=== PATIENT | male | born 1985 | race Caucasian/White ===

== ENCOUNTER 2016-12-05 13:08 | Inpatient (IN) | payer OTHER ==
[2016-12-05 15:49] VITALS: BMI 26.3
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
[2016-12-05] MEDS ORDERED: hydrOXYzine PAMOATE 50 MG CAPSULE (FP) PO PRN (17:09)
[2016-12-05] MEDS ORDERED: MAGNESIUM CITRATE 300 ML BOTTLE PO PRN (17:09)
[2016-12-05] MEDS ORDERED: guaiFENesin/D-METHORPHAN HB 10 ML UNIT-DOSE CUPS PO PRN (17:09)
[2016-12-05] MEDS ORDERED: LOPERAMIDE HCL 2 MG CAPSULE PO PRN (17:09)
[2016-12-05] MEDS ORDERED: ACETAMINOPHEN 325 MG TABLET (FP) PO PRN (17:09)
[2016-12-05] MEDS ORDERED: P-EPHED 60MG/TRIPROLIDI 2.5MG TABLET PO PRN (17:09)
[2016-12-05] MEDS ORDERED: MAG HYDROX/AL HYDROX/SIMETH 30 ML UNIT-DOSE CUP PO PRN (17:09)
[2016-12-05] MEDS ORDERED: MAGNESIUM HYDROX 2400MG/30ML ORAL SUSPENSION 30 ML CUP PO PRN (17:09)
[2016-12-05] MEDS ORDERED: MENTHOL/PHENOL 1 EACH UD MM PRN (17:09)
[2016-12-05] MEDS ORDERED: ALBUTEROL SO4 6.7 GM HFA INHALER IH PRN (17:15)
[2016-12-05] MEDS ORDERED: METHADONE HCL 10 MG TABLET (FOR DETOX USE ONLY) PO ONE ×2 (18:45→23:00)
[2016-12-05] MEDS: diazePAM 5 MG TABLET PO PRN (18:59)
[2016-12-05 22:32] LABS: URINE APPEARANCE CLEAR; URINE BILIRUBIN NEGATIVE (NEGATIVE); URINE COLOR YELLOW; URINE GLUCOSE (UA) NEGATIVE (NEGATIVE); URINE KETONE NEGATIVE (NEGATIVE); URINE LEUK ESTERASE NEGATIVE (NEGATIVE); URINE NITRITE NEGATIVE (NEGATIVE); URINE PROTEIN NEGATIVE (NEGATIVE); URINE UROBILINOGEN NEGATIVE E.U./dl (0.2-1.0)
[2016-12-05 22:34] LABS: URINE BLOOD 1+ (NEGATIVE)
[2016-12-05] MEDS: VARENICLINE TARTRATE 1 MG TAB PO SCH (22:37)
[2016-12-05] MEDS: CYCLOBENZAPRINE HCL 10 MG TABLET (FP) PO PRN (22:37)
[2016-12-05] MEDS: cloNIDine HCL 0.1 MG TABLET PO SCH (22:37)
[2016-12-05] MEDS: THIAMINE HCL 100 MG TABLET (FP) PO SCH (22:38)
[2016-12-05 22:44] LABS: URINE MUCUS RARE; URINE RBC 16 /hpf (0-3); URINE WBC 1 /hpf (3-5)
[2016-12-06] MEDS: diazePAM 5 MG TABLET PO PRN ×4 (06:21→22:13)
[2016-12-06] MEDS: CYCLOBENZAPRINE HCL 10 MG TABLET (FP) PO PRN ×3 (06:21→22:13)
[2016-12-06 09:55] LABS: MCH 29.5 pg (25.7-33.7); MEAN CELL VOLUME 86.9 fl (80-96); MEAN PLT VOLUME 8.7 fl (7.5-11.1); PLATELET COUNT 226 K/MM3 (134-434); WHITE BLOOD COUNT 6.3 K/mm3 (4.0-10.0)
[2016-12-06] MEDS ORDERED: METHADONE HCL 10 MG TABLET (FOR DETOX USE ONLY) PO ONE (10:00)
[2016-12-06] MEDS: cloNIDine HCL 0.1 MG TABLET PO SCH ×2 (10:36→22:13)
[2016-12-06] MEDS: PRENATAL VITAMINS W/ FOLIC ACID TABLET (FP) PO SCH (10:36)
[2016-12-06] MEDS: VARENICLINE TARTRATE 1 MG TAB PO SCH ×2 (10:36→22:13)
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
[2016-12-06 10:43] LABS: ALBUMIN 2.8 g/dl (3.4-5.0); ALK PHOS 82 U/L (45-117); ANION GAP 8 (8-16); BILIRUBIN,TOTAL 0.5 mg/dL (0.2-1.0); CALCIUM 8.6 mg/dL (8.5-10.1); CO2 29 mmol/L (21-32); COCKROFT - GAULT 161.78; CREATININE 0.7 mg/dL (0.7-1.3); GLUCOSE,RANDOM 109 mg/dL (74-106); SGOT/AST 30 U/L (15-37); SGPT/ALT 46 U/L (12-78); TOT PROT 5.8 g/dl (6.4-8.2)
--- NOTE | 2016-12-06 10:51 | PN ---
S COWS - Scale Resting Pulse: 0= [place] 80 or Below Sweatin= Chills/Flushing Restless Observation: 3= Extraneous Movement Pupil Size: 2= Moderately Dilated Bone or Joint Aches: 4=Acute Joint/Muscle Pain Runny Nose/ Eye Tearin= Nasal Congestion GI Upset > 30mins: 1= Stomach Cramp Tremor Observation of Outstretched Hands: 1= Tremor [place], Not Seen Yawning Observation: 1= 1-2x During Session Anxiety or Irritability: 2=Irritable/Anxious Goose Flesh Skin: 0=Smooth Skin COWS Score: 16 S Progress Note (SOAP) Subjective: ANXIETY,SWEATS,FATIGUE. Objective: 12/06/16 10:50 Vital Signs Temperature 96.6 F L 12/06/16 06:37 Pulse Rate 70 12/06/16 09:46 Respiratory Rate 20 12/06/16 09:46 Blood Pressure 123/73 12/06/16 09:46 O2 Sat by Pulse Oximetry (%) Laboratory Last Values WBC 6.3 K/mm3 (4.0-10.0) 12/06/16 07:00 RBC 4.69 M/mm3 (4.00-5.60) 12/06/16 07:00 Hgb 13.9 GM/dL (11.7-16.9) 12/06/16 07:00 Hct 40.8 % (35.4-49) 12/06/16 07:00 MCV 86.9 fl (80-96) 12/06/16 07:00 MCHC 34.0 g/dl (32.0-35.9) 12/06/16 07:00 RDW 13.0 % (11.9-15.9) D 12/06/16 07:00 Plt Count 226 K/MM3 (134-434) 12/06/16 07:00 MPV 8.7 fl (7.5-11.1) 12/06/16 07:00 Urine Color Yellow 12/05/16 20:30 Urine Appearance Clear 12/05/16 20:30 Urine pH 5.0 (5.0-8.0) 12/05/16 20:30 Ur Specific [place] >= 1.030 (1.005-1.025) H 12/05/16 20:30 Urine Protein Negative (NEGATIVE) 12/05/16 20:30 Urine Glucose (UA) Negative (NEGATIVE) 12/05/16 20:30 Urine Ketones Negative (NEGATIVE) 12/05/16 20:30 Urine Blood 1+ (NEGATIVE) H 12/05/16 20:30 Urine Nitrite Negative (NEGATIVE) 12/05/16 20:30 Urine Bilirubin Negative (NEGATIVE) 12/05/16 20:30 Urine Urobilinogen Negative E.U./dl (0.2-1.0) 12/05/16 20:30 Ur Leukocyte Esterase Negative (NEGATIVE) 12/05/16 20:30 Urine RBC 16 /hpf (0-3) 12/05/16 20:30 Urine WBC 1 /hpf (3-5) 12/05/16 20:30 Ur Epithelial Cells Rare /hpf (FEW) 12/05/16 20:30 Urine Mucus Rare 12/05/16 20:30 Assessment: 12/06/16 10:50 WITHDRAWAL SX Plan: CONTINUE DETOX
[2016-12-06 12:34] LABS: HIV 1 & 2 AB NEGATIVE; HIV 1 AGp24 NEGATIVE
--- NOTE | 2016-12-06 12:49 | EKG ---
Test Reason : Blood Pressure : / mmHG Vent. Rate : 077 BPM Atrial Rate : 077 BPM P-R Int : 168 ms QRS Dur : 090 ms QT Int : 380 ms P-R-T Axes : 072 066 058 degrees QTc Int : 430 ms NORMAL SINUS RHYTHM NORMAL ECG NO PREVIOUS ECGS AVAILABLE Confirmed by SCOUT BAR, OMARI ([id number]) on 12/06/2016 12:49:08 PM Referred By: Confirmed By:OMARI BUTTERFIELD MD
[2016-12-06] MEDS: diphenhydrAMINE HCL 50 MG CAPSULE PO PRN (22:13)
[2016-12-06] MEDS: THIAMINE HCL 100 MG TABLET (FP) PO SCH (22:13)
[2016-12-07] MEDS: diazePAM 5 MG TABLET PO PRN ×3 (06:06→22:16)
[2016-12-07] MEDS: CYCLOBENZAPRINE HCL 10 MG TABLET (FP) PO PRN (06:06)
[2016-12-07] MEDS ORDERED: METHADONE HCL 5 MG TABLET (FOR DETOX USE ONLY) PO ONE (10:00)
[2016-12-07] MEDS: cloNIDine HCL 0.1 MG TABLET PO SCH ×2 (10:46→22:16)
[2016-12-07] MEDS: VARENICLINE TARTRATE 1 MG TAB PO SCH ×2 (10:46→22:16)
[2016-12-07] MEDS: SERTRALINE HCL 50 MG TABLET (FP) PO SCH (10:46)
[2016-12-07] MEDS: PRENATAL VITAMINS W/ FOLIC ACID TABLET (FP) PO SCH (10:46)
--- NOTE | 2016-12-07 12:00 | PN ---
BHS COWS - Scale Resting Pulse: 1= [place] 81-100 Sweatin= Chills/Flushing Restless Observation: 3= Extraneous Movement Pupil Size: 2= Moderately Dilated Bone or Joint Aches: 4=Acute Joint/Muscle Pain Runny Nose/ Eye Tearin= Nasal Congestion GI Upset > 30mins: 1= Stomach Cramp Tremor Observation of Outstretched Hands: 2= Slight Tremor Visible Yawning Observation: 2= >3x During Session Anxiety or Irritability: 2=Irritable/Anxious Goose Flesh Skin: 0=Smooth Skin COWS Score: 19 BHS Progress Note (SOAP) Subjective: ANXIETY,IRRITABILITY,SWEATS,MUSCLE/BODY ACHES,FATIGUE. Objective: 12/07/16 11:59 Vital Signs Temperature 98.1 F 12/07/16 09:30 Pulse Rate 88 12/07/16 09:30 Respiratory Rate 18 12/07/16 09:30 Blood Pressure 129/83 12/07/16 09:30 O2 Sat by Pulse Oximetry (%) Laboratory Last Values WBC 6.3 K/mm3 (4.0-10.0) 12/06/16 07:00 RBC 4.69 M/mm3 (4.00-5.60) 12/06/16 07:00 Hgb 13.9 GM/dL (11.7-16.9) 12/06/16 07:00 Hct 40.8 % (35.4-49) 12/06/16 07:00 MCV 86.9 fl (80-96) 12/06/16 07:00 MCHC 34.0 g/dl (32.0-35.9) 12/06/16 07:00 RDW 13.0 % (11.9-15.9) D 12/06/16 07:00 Plt Count 226 K/MM3 (134-434) 12/06/16 07:00 MPV 8.7 fl (7.5-11.1) 12/06/16 07:00 Sodium 140 mmol/L (136-145) 12/06/16 07:00 Potassium 4.2 mmol/L (3.5-5.1) 12/06/16 07:00 Chloride 103 mmol/L (98-107) 12/06/16 07:00 Carbon Dioxide 29 mmol/L (21-32) 12/06/16 07:00 Anion Gap 8 (8-16) 12/06/16 07:00 BUN 16 mg/dL (7-18) 12/06/16 07:00 Creatinine 0.7 mg/dL (0.7-1.3) D 12/06/16 07:00 Creat Clearance w eGFR > 60 (>60) 12/06/16 07:00 Random Glucose 109 mg/dL (74-106) H D 12/06/16 07:00 Calcium 8.6 mg/dL (8.5-10.1) 12/06/16 07:00 Total Bilirubin 0.5 mg/dL (0.2-1.0) D 12/06/16 07:00 AST 30 U/L (15-37) 12/06/16 07:00 ALT 46 U/L (12-78) 12/06/16 07:00 Alkaline Phosphatase 82 U/L (45-117) 12/06/16 07:00 Total Protein 5.8 g/dl (6.4-8.2) L 12/06/16 07:00 Albumin 2.8 g/dl (3.4-5.0) L 12/06/16 07:00 Urine Color Yellow 12/05/16 20:30 Urine Appearance Clear 12/05/16 20:30 Urine pH 5.0 (5.0-8.0) 12/05/16 20:30 Ur Specific [place] >= 1.030 (1.005-1.025) H 12/05/16 20:30 Urine Protein Negative (NEGATIVE) 12/05/16 20:30 Urine Glucose (UA) Negative (NEGATIVE) 12/05/16 20:30 Urine Ketones Negative (NEGATIVE) 12/05/16 20:30 Urine Blood 1+ (NEGATIVE) H 12/05/16 20:30 Urine Nitrite Negative (NEGATIVE) 12/05/16 20:30 Urine Bilirubin Negative (NEGATIVE) 12/05/16 20:30 Urine Urobilinogen Negative E.U./dl (0.2-1.0) 12/05/16 20:30 Ur Leukocyte Esterase Negative (NEGATIVE) 12/05/16 20:30 Urine RBC 16 /hpf (0-3) 12/05/16 20:30 Urine WBC 1 /hpf (3-5) 12/05/16 20:30 Ur Epithelial Cells Rare /hpf (FEW) 12/05/16 20:30 Urine Mucus Rare 12/05/16 20:30 RPR Titer Nonreactive (NONREACTIVE) 12/06/16 07:00 HIV 1&2 Antibody Screen Negative 12/06/16 07:00 HIV P24 Antigen Negative 12/06/16 07:00 Assessment: 12/07/16 11:59 WITHDRAWAL SX Plan: CONTINUE DETOX FLEXERIL DIRECTED
[2016-12-07] MEDS: CYCLOBENZAPRINE HCL 10 MG TABLET (FP) PO SCH ×2 (16:05→22:16)
[2016-12-07] MEDS: THIAMINE HCL 100 MG TABLET (FP) PO SCH (22:16)
[2016-12-07] MEDS: diphenhydrAMINE HCL 50 MG CAPSULE PO PRN (22:16)
[2016-12-08] MEDS: CYCLOBENZAPRINE HCL 10 MG TABLET (FP) PO SCH ×2 (05:43→13:02)
[2016-12-08] MEDS ORDERED: METHADONE HCL 5 MG TABLET (FOR DETOX USE ONLY) PO ONE (10:00)
[2016-12-08] MEDS: PRENATAL VITAMINS W/ FOLIC ACID TABLET (FP) PO SCH (10:18)
[2016-12-08] MEDS: VARENICLINE TARTRATE 1 MG TAB PO SCH (10:18)
[2016-12-08] MEDS: cloNIDine HCL 0.1 MG TABLET PO SCH (10:18)
[2016-12-08] MEDS: SERTRALINE HCL 50 MG TABLET (FP) PO SCH (10:18)
[2016-12-08] MEDS: diazePAM 5 MG TABLET PO PRN ×2 (10:19→16:49)
--- NOTE | 2016-12-08 10:38 | PN ---
S Progress Note (SOAP) Subjective: IRRITABILITY,ANXIETY,RESTLESSNESS, SWEATS/CHILLS, MUSCLE ACHES. Objective: 12/08/16 10:37 Vital Signs Temperature 96.8 F L 12/08/16 09:53 Pulse Rate 93 H 12/08/16 09:53 Respiratory Rate 20 12/08/16 09:53 Blood Pressure 128/85 12/08/16 09:53 O2 Sat by Pulse Oximetry (%) Laboratory Last Values WBC 6.3 K/mm3 (4.0-10.0) 12/06/16 07:00 RBC 4.69 M/mm3 (4.00-5.60) 12/06/16 07:00 Hgb 13.9 GM/dL (11.7-16.9) 12/06/16 07:00 Hct 40.8 % (35.4-49) 12/06/16 07:00 MCV 86.9 fl (80-96) 12/06/16 07:00 MCHC 34.0 g/dl (32.0-35.9) 12/06/16 07:00 RDW 13.0 % (11.9-15.9) D 12/06/16 07:00 Plt Count 226 K/MM3 (134-434) 12/06/16 07:00 MPV 8.7 fl (7.5-11.1) 12/06/16 07:00 Sodium 140 mmol/L (136-145) 12/06/16 07:00 Potassium 4.2 mmol/L (3.5-5.1) 12/06/16 07:00 Chloride 103 mmol/L (98-107) 12/06/16 07:00 Carbon Dioxide 29 mmol/L (21-32) 12/06/16 07:00 Anion Gap 8 (8-16) 12/06/16 07:00 BUN 16 mg/dL (7-18) 12/06/16 07:00 Creatinine 0.7 mg/dL (0.7-1.3) D 12/06/16 07:00 Creat Clearance w eGFR > 60 (>60) 12/06/16 07:00 Random Glucose 109 mg/dL (74-106) H D 12/06/16 07:00 Calcium 8.6 mg/dL (8.5-10.1) 12/06/16 07:00 Total Bilirubin 0.5 mg/dL (0.2-1.0) D 12/06/16 07:00 AST 30 U/L (15-37) 12/06/16 07:00 ALT 46 U/L (12-78) 12/06/16 07:00 Alkaline Phosphatase 82 U/L (45-117) 12/06/16 07:00 Total Protein 5.8 g/dl (6.4-8.2) L 12/06/16 07:00 Albumin 2.8 g/dl (3.4-5.0) L 12/06/16 07:00 Urine Color Yellow 12/05/16 20:30 Urine Appearance Clear 12/05/16 20:30 Urine pH 5.0 (5.0-8.0) 12/05/16 20:30 Ur Specific [place] >= 1.030 (1.005-1.025) H 12/05/16 20:30 Urine Protein Negative (NEGATIVE) 12/05/16 20:30 Urine Glucose (UA) Negative (NEGATIVE) 12/05/16 20:30 Urine Ketones Negative (NEGATIVE) 12/05/16 20:30 Urine Blood 1+ (NEGATIVE) H 12/05/16 20:30 Urine Nitrite Negative (NEGATIVE) 12/05/16 20:30 Urine Bilirubin Negative (NEGATIVE) 12/05/16 20:30 Urine Urobilinogen Negative E.U./dl (0.2-1.0) 12/05/16 20:30 Ur Leukocyte Esterase Negative (NEGATIVE) 12/05/16 20:30 Urine RBC 16 /hpf (0-3) 12/05/16 20:30 Urine WBC 1 /hpf (3-5) 12/05/16 20:30 Ur Epithelial Cells Rare /hpf (FEW) 12/05/16 20:30 Urine Mucus Rare 12/05/16 20:30 RPR Titer Nonreactive (NONREACTIVE) 12/06/16 07:00 HIV 1&2 Antibody Screen Negative 12/06/16 07:00 HIV P24 Antigen Negative 12/06/16 07:00 Assessment: 12/08/16 10:38 WITHDRAWAL SX Plan: CONTINUE DETOX
[2016-12-08 17:45] VITALS: BP 91/66; PULSE 69; TEMP 97.8
--- NOTE | 2016-12-08 21:50 | DS ---
[facility] Detox Discharge Summary Admission Date: 12/05/16 Discharge Date: 12/08/16 - History Present History: Alcohol Dependence, Opioid Dependence Additional Comments: patient insists to leave the unit, refuses to wait face to face with provider refuses e prescription Pertinent Past History: asthma - Physical Exam Results Vital Signs: Vital Signs Temperature 97.8 F 12/08/16 17:45 Pulse Rate 69 12/08/16 17:45 Respiratory Rate 18 12/08/16 17:45 Blood Pressure 91/66 12/08/16 17:45 O2 Sat by Pulse Oximetry (%) Pertinent Admission Physical Exam Findings: withdrawal sx Laboratory Last Values WBC 6.3 K/mm3 (4.0-10.0) 12/06/16 07:00 RBC 4.69 M/mm3 (4.00-5.60) 12/06/16 07:00 Hgb 13.9 GM/dL (11.7-16.9) 12/06/16 07:00 Hct 40.8 % (35.4-49) 12/06/16 07:00 MCV 86.9 fl (80-96) 12/06/16 07:00 MCHC 34.0 g/dl (32.0-35.9) 12/06/16 07:00 RDW 13.0 % (11.9-15.9) D 12/06/16 07:00 Plt Count 226 K/MM3 (134-434) 12/06/16 07:00 MPV 8.7 fl (7.5-11.1) 12/06/16 07:00 Sodium 140 mmol/L (136-145) 12/06/16 07:00 Potassium 4.2 mmol/L (3.5-5.1) 12/06/16 07:00 Chloride 103 mmol/L (98-107) 12/06/16 07:00 Carbon Dioxide 29 mmol/L (21-32) 12/06/16 07:00 Anion Gap 8 (8-16) 12/06/16 07:00 BUN 16 mg/dL (7-18) 12/06/16 07:00 Creatinine 0.7 mg/dL (0.7-1.3) D 12/06/16 07:00 Creat Clearance w eGFR > 60 (>60) 12/06/16 07:00 Random Glucose 109 mg/dL (74-106) H D 12/06/16 07:00 Calcium 8.6 mg/dL (8.5-10.1) 12/06/16 07:00 Total Bilirubin 0.5 mg/dL (0.2-1.0) D 12/06/16 07:00 AST 30 U/L (15-37) 12/06/16 07:00 ALT 46 U/L (12-78) 12/06/16 07:00 Alkaline Phosphatase 82 U/L (45-117) 12/06/16 07:00 Total Protein 5.8 g/dl (6.4-8.2) L 12/06/16 07:00 Albumin 2.8 g/dl (3.4-5.0) L 12/06/16 07:00 Urine Color Yellow 12/05/16 20:30 Urine Appearance Clear 12/05/16 20:30 Urine pH 5.0 (5.0-8.0) 12/05/16 20:30 Ur Specific [place] >= 1.030 (1.005-1.025) H 12/05/16 20:30 Urine Protein Negative (NEGATIVE) 12/05/16 20:30 Urine Glucose (UA) Negative (NEGATIVE) 12/05/16 20:30 Urine Ketones Negative (NEGATIVE) 12/05/16 20:30 Urine Blood 1+ (NEGATIVE) H 12/05/16 20:30 Urine Nitrite Negative (NEGATIVE) 12/05/16 20:30 Urine Bilirubin Negative (NEGATIVE) 12/05/16 20:30 Urine Urobilinogen Negative E.U./dl (0.2-1.0) 12/05/16 20:30 Ur Leukocyte Esterase Negative (NEGATIVE) 12/05/16 20:30 Urine RBC 16 /hpf (0-3) 12/05/16 20:30 Urine WBC 1 /hpf (3-5) 12/05/16 20:30 Ur Epithelial Cells Rare /hpf (FEW) 12/05/16 20:30 Urine Mucus Rare 12/05/16 20:30 RPR Titer Nonreactive (NONREACTIVE) 12/06/16 07:00 HIV 1&2 Antibody Screen Negative 12/06/16 07:00 HIV P24 Antigen Negative 12/06/16 07:00 lab noted - Treatment Hospital Course: Detox Protocol Followed, Responded well - Medication Discharge Medications: Ambulatory Orders Albuterol Sulfate Inhaler - [Ventolin HFA Inhaler -] 2 inh IH Q4H PRN #1 inhaler 05/14/16 Methylphenidate HCl [Concerta] 18 mg PO DAILY 12/05/16 Sertraline HCl [Zoloft -] 100 mg PO DAILY 12/05/16 Varenicline Tartrate [Chantix] 1 mg PO BID 12/05/16 Sertraline HCl [Zoloft] 100 mg PO DAILY #30 tablet 12/06/16 - Diagnosis (1) Alcohol dependence with uncomplicated withdrawal Status: Acute (2) Nicotine dependence Status: Acute Qualifiers: Nicotine product type: cigarettes Substance use status: in withdrawal Qualified Code(s): F17.213 - Nicotine dependence, cigarettes, with withdrawal (3) Opioid dependence with withdrawal Status: Acute (4) Weight loss Status: Acute (5) Asthma Status: Chronic Qualifiers: Asthma severity: mild intermittent Asthma complication type: with status asthmaticus Qualified Code(s): J45.22 - Mild intermittent asthma with status asthmaticus - AMA Did Patient Leave Against Medical Advice: Yes
[2016-12-09] MEDS ORDERED: METHADONE HCL 10 MG TABLET (FOR DETOX USE ONLY) PO ONE (10:00)
[2016-12-10] MEDS ORDERED: METHADONE HCL 5 MG TABLET (FOR DETOX USE ONLY) PO ONE (06:00)
== END 2016-12-08 20:53 | disposition left against medical advice (07) | DRG 770 ==
LOC: YASAS 13:08 → Y3N 18:01
PROVIDERS: ADMIT Internal Medicine; ATTEND Internal Medicine
PROC: HZ2ZZZZ Detoxification Services for Substance Abuse Treatment (ICD-10-PCS; principal; 2016-12-05)
DX: F11.23 Opioid dependence with withdrawal (principal); F10.230 Alcohol dependence with withdrawal, uncomplicated; F17.213 Nicotine dependence, cigarettes, with withdrawal; F19.24 Other psychoactive substance dependence with psychoactive substance-induced mood disorder; F90.9 Attention-deficit hyperactivity disorder, unspecified type; J45.22 Mild intermittent asthma with status asthmaticus; B18.2 Chronic viral hepatitis C; G47.00 Insomnia, unspecified; Z87.898 Personal history of other specified conditions; Z91.5 Personal history of self-harm
CPT/HCPCS: 36415; 80053; 81003; 81015; 85027; 86593; 87389; 93005; 93010

== ENCOUNTER 2017-01-20 12:59 | Inpatient (IN) | payer OTHER ==
[2017-01-20 13:47] VITALS: BMI 24.9
--- NOTE | 2017-01-20 14:31 | HP ---
COWS - Scale Resting Pulse: 0= [place] 80 or Below Sweatin= Chills/Flushing Restless Observation: 1= Difficult to Sit Still Pupil Size: 0= Normal to Room Light Bone or Joint Aches: 2= Severe Diffuse Aches Runny Nose/ Eye Tearin= Nasal Congestion GI Upset > 30mins: 1= Stomach Cramp Tremor Observation: 1= Tremor [place], Not Seen Yawning Observation: 1= 1-2x During Session Anxiety or Irritability: 1=Feels Anxious/Irritable Goose Flesh Skin: 0=Smooth Skin COWS Score: 9 Admission ROS S - HPI Chief Complaint: I want to get off all the drugs Allergies/Adverse Reactions: Allergies Allergy/AdvReac Type Severity Reaction Status Date / Time ciprofloxacin [From Cipro] Allergy Severe Verified 01/20/17 14:28 ciprofloxacin HCl Allergy Severe Verified 01/20/17 14:28 [From Cipro] diclofenac Allergy Severe Verified 01/20/17 14:28 ibuprofen [From Motrin] Allergy Severe Verified 01/20/17 14:28 NSAIDS (Non-Steroidal Allergy Severe Verified 01/20/17 14:28 Anti-Inflamma mushroom Allergy Verified 01/20/17 14:28 shellfish derived Allergy Verified 01/20/17 14:28 History of Present Illness: 31 yo gentleman here for detox from opiates (heroin, street methadone). Also drinks etoh, uses cocaine and benzodiazepines. Has previous history of detox, methadone program. Denies seizures but does have black outs, also with weight loss. Exam Limitations: Clinical Condition - Ebola screening Have you traveled outside of the country in the last 21 days: No Have you had contact with anyone from an Ebola affected area: No Have you been sick,other than usual withdrawal symptoms: No Do you have a fever: No - Review of Systems Constitutional: Chills, Loss of Appetite, Changes in sleep EENT: reports: Blurred Vision, Nose Congestion Respiratory: reports: Wheezing Cardiac: reports: No Symptoms Reported GI: reports: Poor Appetite, Indigestion : reports: Dysuria, Urgency Musculoskeletal: reports: Back Pain, Joint Pain, Muscle Pain Integumentary: reports: No Symptoms Reported Neuro: reports: Headache, Tremors Endocrine: reports: No Symptoms Reported Hematology: reports: No Symptoms Reported Psychiatric: reports: Mood/Affect Appropiate, Orientated x3, Anxious Other Systems: Reviewed and Negative Patient History - Patient Medical History Hx Anemia: No Hx Asthma: Yes (on albuterol inhaler) Hx Chronic Obstructive Pulmonary Disease (COPD): No Hx Cancer: No Hx Cardiac Disorders: No Hx Congestive Heart Failure: No Hx Hypertension: No Hx Hypercholesterolemia: No Hx Pacemaker: No HX Cerebrovascular Accident: No Hx Seizures: No Hx Dementia: No Hx Diabetes: No Hx Gastrointestinal Disorders: No Hx Liver Disease: No Hx Genitourinary Disorders: No Hx Sexually Transmitted Disorders: No Hx Renal Disease (ESRD): No Hx Thyroid Disease: No Hx Human Immunodeficiency Virus (HIV): No (last negative 03/10) Hx Hepatitis C: Yes (not treated) Hx Depression: Yes (anxiety) Hx Suicide Attempt: Yes (overdose 04/2016 - hospitalized) Hx Bipolar Disorder: No Hx Schizophrenia: No - Patient Surgical History Past Surgical History: Yes Hx Orthopedic Surgery: Yes (arthroscopic of right hip 10/2014) Other Surgical History: arthroscopic surgery of both shoulders in 2013,2014, pilonidal cystectomy - PPD History Previous Implant?: Yes Documented Results: Negative w/proof Date: 05/12/16 Results: 0 mm PPD to be Administered?: Yes - Reproductive History Patient is a Female of Child Bearing Age (11 -55 yrs old): No (male) - Smoking Cessation Smoking history: Current every day smoker Have you smoked in the past 12 months: Yes Aproximately how many cigarettes per day: 30 Cigars Per Day: 0 Hx Chewing Tobacco Use: No Initiated information on smoking cessation: Yes 'Breaking Loose' booklet given: 01/20/17 (give on floor) - Substance & Tx. History Hx Alcohol Use: Yes Hx Substance Use: Yes Substance Use Type: Alcohol, Heroin, Tranquilizers Hx Substance Use Treatment: Yes (detox, methadone program) - Substances Abused Alcohol Route: Oral Frequency: 3-6 times per week Amount used: 3 beers Age of first use: 16 Date of Last Use: 01/18/17 Heroin Route: Injection Frequency: Daily Amount used: 2gm Age of first use: 11 Date of Last Use: 01/20/17 Cocaine Route: Injection Frequency: Daily Amount used: 2 gm Age of first use: 11 Date of Last Use: 01/20/17 Alprazolam (Xanax) Route: Oral Frequency: 3-6 times per week Amount used: two four mg sticks Age of first use: 31 Date of Last Use: 01/18/17 Benzodiazepine (Klonopin) Route: Oral Frequency: 3-6 times per week Amount used: 6mg Age of first use: 31 Date of Last Use: 01/19/17 Family Disease History - Family Disease History Family Disease History: Diabetes: Father (living, etoh, drugs), Other: Father, Mother (living, etoh and bzo), Brother (one, living, brain injury, pot), Sister (two living, one cocaine, one pot and etoh), Son (three - living), Daughter ( one - living) Admission Physical Exam S - Vital Signs Vital Signs: Vital Signs - 24 hr 01/20/17 13:44 Temperature 97.8 F Pulse Rate 72 Respiratory 18 Rate Blood Pressure 122/76 - Physical General Appearance: Yes: Nourished, Appropriately Dressed, Mild Distress HEENTM: Yes: Hearing grossly Normal, Normocephalic, Normal Voice, Pharynx Normal , Rhinorrhea, Anne, Other (erythema, scratch anne noted near right eye - patient thinks he fell,no swelling) Respiratory: Yes: No Respiratory Distress, Rhonchi, Wheezing Neck: Yes: No masses,lesions,Nodules, Supple Breast: Yes: Breast Exam Deferred Cardiology: Yes: Regular Rhythm, Regular Rate Abdominal: Yes: Soft Genitourinary: Yes: Uregency Back: Yes: Normal Inspection Musculoskeletal: Yes: full range of Motion, Gait Steady, Back pain, Muscle Pain Extremities: Yes: Normal Inspection, Pedal Edema Neurological: Yes: Fully Oriented, Alert, Normal Mood/Affect, Normal Response Integumentary: Yes: Warm, Track Anne (mild erythema dorsal aspect of right arm - no overt fluctuance), Other Lymphatic: Yes: Within Normal Limits - Diagnostic (1) Opioid dependence with withdrawal Current Visit: Yes Status: Chronic (2) Cocaine dependence Current Visit: Yes Status: Chronic Qualifiers: Substance use status: uncomplicated Qualified Code(s): F14.20 - Cocaine dependence, uncomplicated (3) Nicotine dependence Current Visit: Yes Status: Chronic Qualifiers: Nicotine product type: cigarettes Substance use status: in withdrawal Qualified Code(s): F17.213 - Nicotine dependence, cigarettes, with withdrawal (4) Asthma Current Visit: Yes Status: Chronic Qualifiers: Asthma severity: mild intermittent Asthma complication type: with status asthmaticus Qualified Code(s): J45.22 - Mild intermittent asthma with status asthmaticus (5) Hepatitis C Current Visit: Yes Status: Chronic Qualifiers: Viral hepatitis chronicity: carrier Qualified Code(s): B18.2 - Chronic viral hepatitis C Cleared for Admission [facility] - Detox or Rehab [facility] Level of Care: Medically Managed Detox Regimen/Protocol: Methadone S Breath Alcohol Content Breath Alcohol Content: 0 Urine Drug Screen - Results Drug Screen Negative: No Urine Drug Screen Results: GREY-Cocaine, OPI-Opiates, MTD-Methadone
[2017-01-20] MEDS ORDERED: guaiFENesin/D-METHORPHAN HB 10 ML UNIT-DOSE CUPS PO PRN (14:45)
[2017-01-20] MEDS ORDERED: P-EPHED 60MG/TRIPROLIDI 2.5MG TABLET PO PRN (14:45)
[2017-01-20] MEDS ORDERED: MAGNESIUM HYDROX 2400MG/30ML ORAL SUSPENSION 30 ML CUP PO PRN (14:45)
[2017-01-20] MEDS ORDERED: MENTHOL/PHENOL 1 EACH UD MM PRN (14:45)
[2017-01-20] MEDS ORDERED: MAG HYDROX/AL HYDROX/SIMETH 30 ML UNIT-DOSE CUP PO PRN (14:45)
[2017-01-20] MEDS ORDERED: MAGNESIUM CITRATE 300 ML BOTTLE PO PRN (14:45)
[2017-01-20] MEDS ORDERED: LOPERAMIDE HCL 2 MG CAPSULE PO PRN (14:45)
[2017-01-20] MEDS ORDERED: hydrOXYzine PAMOATE 50 MG CAPSULE (FP) PO PRN (14:45)
[2017-01-20] MEDS ORDERED: ALBUTEROL SO4 6.7 GM HFA INHALER IH PRN (14:49)
[2017-01-20] MEDS ORDERED: METHADONE HCL 10 MG TABLET (FOR DETOX USE ONLY) PO ONE ×2 (15:00→23:00)
[2017-01-20] MEDS: NICOTINE 21 MG/24 HOURS TOPICAL PATCH TD SCH (15:37)
[2017-01-20] MEDS: diazePAM 5 MG TABLET PO PRN ×2 (15:37→22:13)
[2017-01-20] MEDS: ACETAMINOPHEN 325 MG TABLET (FP) PO PRN (15:40)
[2017-01-20 17:19] LABS: URINE APPEARANCE SLCLOUDY; URINE BILIRUBIN NEGATIVE (NEGATIVE); URINE BLOOD 3+ (NEGATIVE); URINE COLOR YELLOW; URINE GLUCOSE (UA) NEGATIVE (NEGATIVE); URINE KETONE NEGATIVE (NEGATIVE); URINE LEUK ESTERASE NEGATIVE (NEGATIVE); URINE NITRITE NEGATIVE (NEGATIVE); URINE PROTEIN NEGATIVE (NEGATIVE); URINE UROBILINOGEN NEGATIVE mg/dL (0.2-1.0)
[2017-01-20 17:28] LABS: URINE MUCUS RARE; URINE RBC 189 /hpf (0-3); URINE WBC 11 /hpf (3-5)
[2017-01-20] MEDS ORDERED: diphenhydrAMINE HCL 50 MG CAPSULE PO PRN (22:00)
[2017-01-20] MEDS: THIAMINE HCL 100 MG TABLET (FP) PO SCH (22:12)
[2017-01-21] MEDS: diazePAM 5 MG TABLET PO PRN ×3 (05:35→22:08)
[2017-01-21] MEDS: ACETAMINOPHEN 325 MG TABLET (FP) PO PRN (05:36)
[2017-01-21] MEDS ORDERED: METHADONE HCL 10 MG TABLET (FOR DETOX USE ONLY) PO ONE (10:00)
[2017-01-21 10:32] LABS: MCH 28.9 pg (25.7-33.7); MCHC 33.4 g/dl (32.0-35.9); MEAN CELL VOLUME 86.6 fl (80-96); MEAN PLT VOLUME 8.9 fl (7.5-11.1); PLATELET COUNT 190 K/MM3 (134-434); RDW 13.1 % (11.9-15.9); WHITE BLOOD COUNT 4.7 K/mm3 (4.0-10.0)
[2017-01-21 10:35] LABS: ALBUMIN 2.7 g/dl (3.4-5.0); ANION GAP 8 (8-16); CALCIUM 8.3 mg/dL (8.5-10.1); CO2 27 mmol/L (21-32); GLUCOSE,RANDOM 86 mg/dL (74-106)
[2017-01-21 10:37] LABS: CREATININE 0.7 mg/dL (0.7-1.3); SGOT/AST 29 U/L (15-37); SGPT/ALT 45 U/L (12-78)
[2017-01-21 10:39] LABS: ALK PHOS 97 U/L (45-117); BILIRUBIN,TOTAL 0.3 mg/dL (0.2-1.0); TOT PROT 5.7 g/dl (6.4-8.2)
[2017-01-21] MEDS: NICOTINE 21 MG/24 HOURS TOPICAL PATCH TD SCH (10:42)
[2017-01-21] MEDS: PRENATAL VITAMINS W/ FOLIC ACID TABLET (FP) PO SCH (10:42)
[2017-01-21] MEDS: CYCLOBENZAPRINE HCL 10 MG TABLET (FP) PO PRN (14:19)
--- NOTE | 2017-01-21 15:29 | PN ---
S COWS - Scale Resting Pulse: 1= [place] 81-100 Sweatin= Chills/Flushing Restless Observation: 3= Extraneous Movement Pupil Size: 1= Pupils >than Normal Bone or Joint Aches: 2= Severe Diffuse Aches Runny Nose/ Eye Tearin= Runny Nose/Eyes GI Upset > 30mins: 3= Vomiting/Diarrhea Tremor Observation of Outstretched Hands: 2= Slight Tremor Visible Yawning Observation: 1= 1-2x During Session Anxiety or Irritability: 2=Irritable/Anxious Goose Flesh Skin: 0=Smooth Skin COWS Score: 18 S Progress Note (SOAP) Subjective: Sweating, diarrhea, interrupted sleep, muscle ache Objective: 01/21/17 15:25 Last Vital Signs Temp Pulse Resp BP Pulse Ox 98.1 F 82 18 172/80 01/21/17 13:54 01/21/17 13:54 01/21/17 13:54 01/21/17 13:54 Laboratory Tests 01/20/17 01/21/17 01/21/17 16:30 07:45 07:45 WBC 4.7 RBC 4.72 Hgb 13.7 Hct 40.9 MCV 86.6 MCH 28.9 MCHC 33.4 RDW 13.1 Plt Count 190 MPV 8.9 Sodium 138 Potassium 4.3 Chloride 103 Carbon Dioxide 27 Anion Gap 8 BUN 25 H D Creatinine 0.7 Creat Clearance w eGFR > 60 Random Glucose 86 D Calcium 8.3 L Total Bilirubin 0.3 D AST 29 ALT 45 Alkaline Phosphatase 97 Total Protein 5.7 L Albumin 2.7 L Urine Color Yellow Urine Appearance Slcloudy Urine pH 5.0 Ur Specific [place] >= 1.030 H Urine Protein Negative Urine Glucose (UA) Negative Urine Ketones Negative Urine Blood 3+ H Urine Nitrite Negative Urine Bilirubin Negative Urine Urobilinogen Negative Ur Leukocyte Esterase Negative Urine RBC 189 Urine WBC 11 Ur Epithelial Cells Rare Urine Mucus Rare RPR Titer 01/21/17 07:45 WBC RBC Hgb Hct MCV MCH MCHC RDW Plt Count MPV Sodium Potassium Chloride Carbon Dioxide Anion Gap BUN Creatinine Creat Clearance w eGFR Random Glucose Calcium Total Bilirubin AST ALT Alkaline Phosphatase Total Protein Albumin Urine Color Urine Appearance Urine pH Ur Specific [place] Urine Protein Urine Glucose (UA) Urine Ketones Urine Blood Urine Nitrite Urine Bilirubin Urine Urobilinogen Ur Leukocyte Esterase Urine RBC Urine WBC Ur Epithelial Cells Urine Mucus RPR Titer Nonreactive Labs noted: bun 25, UA: 3+ blood Assessment: 01/21/17 15:27 Withdrawal symptoms Noted with microscopic hematuria and azotemia Plan: Continue detox Microscopic hematuria: encouraged to drink lots of water, repeat UA, send urine cx to rule out UTI. Follow up with PCP for Urology referral if hematuria persist. Azotemia: encouraged to drink lots of water
[2017-01-21] MEDS: THIAMINE HCL 100 MG TABLET (FP) PO SCH (22:07)
[2017-01-21] MEDS: ZOLPIDEM TARTRATE 5 MG TABLET PO PRN (22:08)
[2017-01-22] MEDS: diazePAM 5 MG TABLET PO PRN ×3 (05:42→22:19)
[2017-01-22] MEDS: CYCLOBENZAPRINE HCL 10 MG TABLET (FP) PO PRN ×2 (05:42→22:19)
--- NOTE | 2017-01-22 09:59 | EKG ---
Test Reason : Blood Pressure : / mmHG Vent. Rate : 071 BPM Atrial Rate : 071 BPM P-R Int : 162 ms QRS Dur : 092 ms QT Int : 402 ms P-R-T Axes : 075 077 068 degrees QTc Int : 436 ms NORMAL SINUS RHYTHM NORMAL ECG WHEN COMPARED WITH ECG OF 05-DEC-2016 18:08, NO SIGNIFICANT CHANGE WAS FOUND Confirmed by PAUL STOCK MD ([id number]) on 01/22/2017 9:58:47 AM Referred By: Confirmed By:PAUL STOCK MD
[2017-01-22] MEDS ORDERED: METHADONE HCL 5 MG TABLET (FOR DETOX USE ONLY) PO ONE (10:00)
[2017-01-22] MEDS: PRENATAL VITAMINS W/ FOLIC ACID TABLET (FP) PO SCH (10:07)
[2017-01-22] MEDS: NICOTINE 21 MG/24 HOURS TOPICAL PATCH TD SCH (10:08)
--- NOTE | 2017-01-22 13:22 | CONSULT ---
[facility] Psychiatric Consult - Data Date of interview: 01/22/17 Admission source: [facility] Identifying data: Another admission to [facility] for this 31 y/o male seeking detox treatment on for heroin and cocaine dependence.Patient is single,a father of four,now undomiciled,unemployed and dependent on relatives/ friends for financial support. Substance Abuse History: Discussed in detail in this interview.Mr Mika ORTEGA remains consistent about the information contained in this section of [facility] report depicting his substance abuse profile : Smoking Cessation. Smoking history: Current every day smoker. Have you smoked in the past 12 months: Yes. Aproximately how many cigarettes per day: 30. Cigars Per Day: 0. Hx Chewing Tobacco Use: No. Initiated information on smoking cessation: Yes. 'Breaking Loose' booklet given: 01/20/17 (give on floor). - Substance & Tx. History. Hx Alcohol Use: Yes. Hx Substance Use: Yes. Substance Use Type: Alcohol, Heroin, Tranquilizers. Hx Substance Use Treatment: Yes (detox, methadone program). - Substances Abused. Alcohol. Route: Oral. Frequency: 3-6 times per week. Amount used: 3 beers. Age of first use: 16. Date of Last Use: 01/18/17. Heroin. Route: Injection. Frequency: Daily. Amount used: 2gm. Age of first use: 11. Date of Last Use: 01/20/17. Cocaine. Route: Injection. Frequency : Daily. Amount used: 2 gm. Age of first use: 11. Date of Last Use: . Alprazolam (Xanax). Route: Oral. Frequency: 3-6 times per week. Amount used: two four mg sticks. Age of first use: 31. Date of Last Use: 01/18. Benzodiazepine (Klonopin). Route: Oral. Frequency: 3-6 times per week. Amount used: 6mg. Age of first use: 31. Date of Last Use: 01/19/17 Medical History: Bronchial asthma and hepatitis C.History of arthroscopic surgery of right hip (2014),for both shoulders (2013) and pilonidal cystectomy. Psychiatric History: Patient is now reporting a history of two psychiatric hospitalizations at [facility] (most recently as of May 2016 ).Diagnosed with MDD and ADHD.Prescribed concerta 18 mg/day + sertraline 100 mg/ day and klonopin by a private psychiatrist in [facility].Last took these medications in October 2016 (as per self-report).Mr Mika ORTEGA denies history of suicide attempts. Physical/Sexual Abuse/Trauma History: Patient denies. Additional Comment: Urine Drug Screen Results: GREY-Cocaine, OPI-Opiates, MTD- Methadone.Noted. Mental Status Exam - Mental Status Exam Alert and Oriented to: Time, Place, Person Cognitive Function: Good Patient Appearance: Well Groomed Mood: Nervous, Withdrawn Affect: Appropriate, Normal Range Patient Behavior: Fatigued, Cooperative Speech Pattern: Clear Voice Loudness: Normal Thought Process: Goal Oriented Thought Disorder: Not Present Hallucinations: Denies Suicidal Ideation: Denies Homicidal Ideation: Denies Insight/Judgement: Poor Sleep: Poorly, Difficulty falling asleep Appetite: Good Muscle strength/Tone: Normal Gait/Station: Normal Psychiatric Findings - Problem List ([place] 1, 2,3) (1) Opioid dependence with withdrawal Current Visit: Yes Status: Acute (2) Cocaine dependence Current Visit: Yes Status: Acute Qualifiers: Substance use status: uncomplicated Qualified Code(s): F14.20 - Cocaine dependence, uncomplicated (3) Nicotine dependence Current Visit: Yes Status: Acute Qualifiers: Nicotine product type: cigarettes Substance use status: in withdrawal Qualified Code(s): F17.213 - Nicotine dependence, cigarettes, with withdrawal (4) Drug-induced mood disorder Current Visit: Yes Status: Acute (5) ADHD Current Visit: No Status: Chronic Comment: By history.Non compliant with medications. (6) MDD (major depressive disorder) Current Visit: Yes Status: Chronic Comment: History. (7) Asthma Current Visit: Yes Status: Chronic Qualifiers: Asthma severity: mild intermittent Asthma complication type: with status asthmaticus Qualified Code(s): J45.22 - Mild intermittent asthma with status asthmaticus (8) Hepatitis C Current Visit: Yes Status: Chronic Qualifiers: Viral hepatitis chronicity: carrier Qualified Code(s): B18.2 - Chronic viral hepatitis C (9) History of arthroscopy of both shoulders Current Visit: No Status: Chronic (10) Insomnia Current Visit: Yes Status: Acute - Initial Treatment Plan Initial Treatment Plan: Psychoeducation.Detoxification in progress.Medications : zoloft 100 mg po daily + Ambien 10 mg po hs prn.Side effects/benefits of both drugs are discussed with the patient.Made aware of potential for parasomnias ( zolpidem) and suicidal ideation/sexual impotence (sertraline).Psychostimulant medication NOT restarted in this hospital course (patient is advised to contact his private psychiatrist for continuity of care).Mr Mika ORTEGA is in agreement with this plan of care.Observation.
[2017-01-22] MEDS ORDERED: ZOLPIDEM TARTRATE 5 MG TABLET PO PRN (14:43)
--- NOTE | 2017-01-22 14:47 | PN ---
[facility] COWS - Scale Resting Pulse: 1= [place] 81-100 Sweatin=Flushed/Facial Moisture Restless Observation: 1= Difficult to Sit Still Pupil Size: 0= Normal to Room Light Bone or Joint Aches: 1= Mild Discomfort Runny Nose/ Eye Tearin= Runny Nose/Eyes GI Upset > 30mins: 3= Vomiting/Diarrhea Tremor Observation of Outstretched Hands: 2= Slight Tremor Visible Yawning Observation: 1= 1-2x During Session Anxiety or Irritability: 2=Irritable/Anxious Goose Flesh Skin: 0=Smooth Skin COWS Score: 15 [facility] Progress Note (SOAP) Subjective: Sweating,interrupted sleep,restless,tremors,anxiety,diarrhea,vomiting. Objective: 01/22/17 14:44 Vital Signs - 8 hr 01/22/17 01/22/17 09:28 13:27 Temperature 96.6 F L 98.1 F Pulse Rate 85 100 H Respiratory 18 18 Rate Blood Pressure 133/88 137/91 Laboratory Last Values WBC 4.7 K/mm3 (4.0-10.0) 01/21/17 07:45 RBC 4.72 M/mm3 (4.00-5.60) 01/21/17 07:45 Hgb 13.7 GM/dL (11.7-16.9) 01/21/17 07:45 Hct 40.9 % (35.4-49) 01/21/17 07:45 MCV 86.6 fl (80-96) 01/21/17 07:45 MCH 28.9 pg (25.7-33.7) 01/21/17 07:45 MCHC 33.4 g/dl (32.0-35.9) 01/21/17 07:45 RDW 13.1 % (11.9-15.9) 01/21/17 07:45 Plt Count 190 K/MM3 (134-434) 01/21/17 07:45 MPV 8.9 fl (7.5-11.1) 01/21/17 07:45 Sodium 138 mmol/L (136-145) 01/21/17 07:45 Potassium 4.3 mmol/L (3.5-5.1) 01/21/17 07:45 Chloride 103 mmol/L (98-107) 01/21/17 07:45 Carbon Dioxide 27 mmol/L (21-32) 01/21/17 07:45 Anion Gap 8 (8-16) 01/21/17 07:45 BUN 25 mg/dL (7-18) H D 01/21/17 07:45 Creatinine 0.7 mg/dL (0.7-1.3) 01/21/17 07:45 Creat Clearance w eGFR > 60 (>60) 01/21/17 07:45 Random Glucose 86 mg/dL (74-106) D 01/21/17 07:45 Calcium 8.3 mg/dL (8.5-10.1) L 01/21/17 07:45 Total Bilirubin 0.3 mg/dL (0.2-1.0) D 01/21/17 07:45 AST 29 U/L (15-37) 01/21/17 07:45 ALT 45 U/L (12-78) 01/21/17 07:45 Alkaline Phosphatase 97 U/L (45-117) 01/21/17 07:45 Total Protein 5.7 g/dl (6.4-8.2) L 01/21/17 07:45 Albumin 2.7 g/dl (3.4-5.0) L 01/21/17 07:45 Urine Color Yellow 01/20/17 16:30 Urine Appearance Slcloudy 01/20/17 16:30 Urine pH 5.0 (5.0-8.0) 01/20/17 16:30 Ur Specific [place] >= 1.030 (1.005-1.025) H 01/20/17 16:30 Urine Protein Negative (NEGATIVE) 01/20/17 16:30 Urine Glucose (UA) Negative (NEGATIVE) 01/20/17 16:30 Urine Ketones Negative (NEGATIVE) 01/20/17 16:30 Urine Blood 3+ (NEGATIVE) H 01/20/17 16:30 Urine Nitrite Negative (NEGATIVE) 01/20/17 16:30 Urine Bilirubin Negative (NEGATIVE) 01/20/17 16:30 Urine Urobilinogen Negative mg/dL (0.2-1.0) 01/20/17 16:30 Ur Leukocyte Esterase Negative (NEGATIVE) 01/20/17 16:30 Urine RBC 189 /hpf (0-3) 01/20/17 16:30 Urine WBC 11 /hpf (3-5) 01/20/17 16:30 Ur Epithelial Cells Rare /hpf (FEW) 01/20/17 16:30 Urine Mucus Rare 01/20/17 16:30 RPR Titer Nonreactive (NONREACTIVE) 01/21/17 07:45 labs noted Assessment: 01/22/17 14:44 Withdrawal sx. Plan: Continue detox
[2017-01-22 17:01] LABS: URINE APPEARANCE CLEAR; URINE BILIRUBIN NEGATIVE (NEGATIVE); URINE BLOOD 2+ (NEGATIVE); URINE COLOR STRAW; URINE GLUCOSE (UA) NEGATIVE (NEGATIVE); URINE KETONE NEGATIVE (NEGATIVE); URINE LEUK ESTERASE NEGATIVE (NEGATIVE); URINE NITRITE NEGATIVE (NEGATIVE); URINE PROTEIN NEGATIVE (NEGATIVE); URINE UROBILINOGEN NEGATIVE mg/dL (0.2-1.0)
[2017-01-22 17:04] LABS: URINE MUCUS RARE; URINE RBC 41 /hpf (0-3); URINE WBC 31 /hpf (3-5)
[2017-01-22] MEDS: THIAMINE HCL 100 MG TABLET (FP) PO SCH (22:19)
[2017-01-22] MEDS: ZOLPIDEM TARTRATE 5 MG TABLET PO PRN (22:19)
[2017-01-23] MEDS: diazePAM 5 MG TABLET PO PRN ×2 (06:06→10:15)
[2017-01-23] MEDS: CYCLOBENZAPRINE HCL 10 MG TABLET (FP) PO PRN (06:06)
[2017-01-23] MEDS ORDERED: METHADONE HCL 5 MG TABLET (FOR DETOX USE ONLY) PO ONE (10:00)
--- NOTE | 2017-01-23 10:12 | PN ---
[facility] Progress Note (SOAP) Subjective: ANXIETY,SWEATS,BODY ACHES,INTERMITTENT SLEEP. Objective: 01/23/17 10:10 Vital Signs Temperature 96.5 F L 01/23/17 10:04 Pulse Rate 113 H 01/23/17 10:04 Respiratory Rate 18 01/23/17 10:04 Blood Pressure 131/90 01/23/17 10:04 O2 Sat by Pulse Oximetry (%) Laboratory Last Values WBC 4.7 K/mm3 (4.0-10.0) 01/21/17 07:45 RBC 4.72 M/mm3 (4.00-5.60) 01/21/17 07:45 Hgb 13.7 GM/dL (11.7-16.9) 01/21/17 07:45 Hct 40.9 % (35.4-49) 01/21/17 07:45 MCV 86.6 fl (80-96) 01/21/17 07:45 MCH 28.9 pg (25.7-33.7) 01/21/17 07:45 MCHC 33.4 g/dl (32.0-35.9) 01/21/17 07:45 RDW 13.1 % (11.9-15.9) 01/21/17 07:45 Plt Count 190 K/MM3 (134-434) 01/21/17 07:45 MPV 8.9 fl (7.5-11.1) 01/21/17 07:45 Sodium 138 mmol/L (136-145) 01/21/17 07:45 Potassium 4.3 mmol/L (3.5-5.1) 01/21/17 07:45 Chloride 103 mmol/L (98-107) 01/21/17 07:45 Carbon Dioxide 27 mmol/L (21-32) 01/21/17 07:45 Anion Gap 8 (8-16) 01/21/17 07:45 BUN 25 mg/dL (7-18) H D 01/21/17 07:45 Creatinine 0.7 mg/dL (0.7-1.3) 01/21/17 07:45 Creat Clearance w eGFR > 60 (>60) 01/21/17 07:45 Random Glucose 86 mg/dL (74-106) D 01/21/17 07:45 Calcium 8.3 mg/dL (8.5-10.1) L 01/21/17 07:45 Total Bilirubin 0.3 mg/dL (0.2-1.0) D 01/21/17 07:45 AST 29 U/L (15-37) 01/21/17 07:45 ALT 45 U/L (12-78) 01/21/17 07:45 Alkaline Phosphatase 97 U/L (45-117) 01/21/17 07:45 Total Protein 5.7 g/dl (6.4-8.2) L 01/21/17 07:45 Albumin 2.7 g/dl (3.4-5.0) L 01/21/17 07:45 Urine Color Straw 01/21/17 16:30 Urine Appearance Clear 01/21/17 16:30 Urine pH 6.0 (5.0-8.0) 01/21/17 16:30 Ur Specific [place] 1.020 (1.005-1.025) 01/21/17 16:30 Urine Protein Negative (NEGATIVE) 01/21/17 16:30 Urine Glucose (UA) Negative (NEGATIVE) 01/21/17 16:30 Urine Ketones Negative (NEGATIVE) 01/21/17 16:30 Urine Blood 2+ (NEGATIVE) H 01/21/17 16:30 Urine Nitrite Negative (NEGATIVE) 01/21/17 16:30 Urine Bilirubin Negative (NEGATIVE) 01/21/17 16:30 Urine Urobilinogen Negative mg/dL (0.2-1.0) 01/21/17 16:30 Ur Leukocyte Esterase Negative (NEGATIVE) 01/21/17 16:30 Urine RBC 41 /hpf (0-3) 01/21/17 16:30 Urine WBC 31 /hpf (3-5) 01/21/17 16:30 Ur Epithelial Cells Rare /hpf (FEW) 01/20/17 16:30 Urine Mucus Rare 01/21/17 16:30 RPR Titer Nonreactive (NONREACTIVE) 01/21/17 07:45 UA/LABS NOTED Assessment: 01/23/17 10:11 WITHDRAWAL SX Plan: CONTINUE DETOX
[2017-01-23] MEDS: PRENATAL VITAMINS W/ FOLIC ACID TABLET (FP) PO SCH (10:13)
[2017-01-23] MEDS: SERTRALINE HCL 50 MG TABLET (FP) PO SCH (10:13)
[2017-01-23] MEDS: NICOTINE 21 MG/24 HOURS TOPICAL PATCH TD SCH (10:14)
[2017-01-23] MEDS ORDERED: ALBUTEROL SO4 6.7 GM HFA INHALER IH PRN (10:14)
[2017-01-23] MEDS: CYCLOBENZAPRINE HCL 10 MG TABLET (FP) PO SCH ×2 (15:19→22:10)
[2017-01-23] MEDS: ZOLPIDEM TARTRATE 5 MG TABLET PO PRN (22:10)
[2017-01-23] MEDS: THIAMINE HCL 100 MG TABLET (FP) PO SCH (22:10)
[2017-01-24] MEDS: CYCLOBENZAPRINE HCL 10 MG TABLET (FP) PO SCH ×3 (06:08→22:09)
[2017-01-24] MEDS ORDERED: METHADONE HCL 10 MG TABLET (FOR DETOX USE ONLY) PO ONE (10:00)
[2017-01-24] MEDS: NICOTINE 21 MG/24 HOURS TOPICAL PATCH TD SCH (10:04)
[2017-01-24] MEDS: PRENATAL VITAMINS W/ FOLIC ACID TABLET (FP) PO SCH (10:04)
[2017-01-24] MEDS: SERTRALINE HCL 50 MG TABLET (FP) PO SCH (10:04)
[2017-01-24] MEDS ORDERED: BACITRACIN 0.9 GM PACKET TP SCH (10:30)
--- NOTE | 2017-01-24 11:27 | PN ---
S Progress Note (SOAP) Subjective: ANXIETY,SWEATS,NASAL CONGESTIONS,FATIGUE, ITCHY DRY,CRACKED AND SCALY FEET. Objective: 01/24/17 11:25 Vital Signs Temperature 97.8 F 01/24/17 09:40 Pulse Rate 81 01/24/17 09:40 Respiratory Rate 18 01/24/17 09:40 Blood Pressure 130/84 01/24/17 09:40 O2 Sat by Pulse Oximetry (%) Laboratory Last Values WBC 4.7 K/mm3 (4.0-10.0) 01/21/17 07:45 RBC 4.72 M/mm3 (4.00-5.60) 01/21/17 07:45 Hgb 13.7 GM/dL (11.7-16.9) 01/21/17 07:45 Hct 40.9 % (35.4-49) 01/21/17 07:45 MCV 86.6 fl (80-96) 01/21/17 07:45 MCH 28.9 pg (25.7-33.7) 01/21/17 07:45 MCHC 33.4 g/dl (32.0-35.9) 01/21/17 07:45 RDW 13.1 % (11.9-15.9) 01/21/17 07:45 Plt Count 190 K/MM3 (134-434) 01/21/17 07:45 MPV 8.9 fl (7.5-11.1) 01/21/17 07:45 Sodium 138 mmol/L (136-145) 01/21/17 07:45 Potassium 4.3 mmol/L (3.5-5.1) 01/21/17 07:45 Chloride 103 mmol/L (98-107) 01/21/17 07:45 Carbon Dioxide 27 mmol/L (21-32) 01/21/17 07:45 Anion Gap 8 (8-16) 01/21/17 07:45 BUN 25 mg/dL (7-18) H D 01/21/17 07:45 Creatinine 0.7 mg/dL (0.7-1.3) 01/21/17 07:45 Creat Clearance w eGFR > 60 (>60) 01/21/17 07:45 Random Glucose 86 mg/dL (74-106) D 01/21/17 07:45 Calcium 8.3 mg/dL (8.5-10.1) L 01/21/17 07:45 Total Bilirubin 0.3 mg/dL (0.2-1.0) D 01/21/17 07:45 AST 29 U/L (15-37) 01/21/17 07:45 ALT 45 U/L (12-78) 01/21/17 07:45 Alkaline Phosphatase 97 U/L (45-117) 01/21/17 07:45 Total Protein 5.7 g/dl (6.4-8.2) L 01/21/17 07:45 Albumin 2.7 g/dl (3.4-5.0) L 01/21/17 07:45 Urine Color Straw 01/21/17 16:30 Urine Appearance Clear 01/21/17 16:30 Urine pH 6.0 (5.0-8.0) 01/21/17 16:30 Ur Specific [place] 1.020 (1.005-1.025) 01/21/17 16:30 Urine Protein Negative (NEGATIVE) 01/21/17 16:30 Urine Glucose (UA) Negative (NEGATIVE) 01/21/17 16:30 Urine Ketones Negative (NEGATIVE) 01/21/17 16:30 Urine Blood 2+ (NEGATIVE) H 01/21/17 16:30 Urine Nitrite Negative (NEGATIVE) 01/21/17 16:30 Urine Bilirubin Negative (NEGATIVE) 01/21/17 16:30 Urine Urobilinogen Negative mg/dL (0.2-1.0) 01/21/17 16:30 Ur Leukocyte Esterase Negative (NEGATIVE) 01/21/17 16:30 Urine RBC 41 /hpf (0-3) 01/21/17 16:30 Urine WBC 31 /hpf (3-5) 01/21/17 16:30 Ur Epithelial Cells Rare /hpf (FEW) 01/20/17 16:30 Urine Mucus Rare 01/21/17 16:30 RPR Titer Nonreactive (NONREACTIVE) 01/21/17 07:45 Assessment: 01/24/17 11:25 WITHDRAWAL SX TINEA PEDIS Plan: CONTINUE DETOX TINACTIN CREAM DIRECTED. BACITRACIN OINTMENT DIRECTED.
[2017-01-24] MEDS: TOLNAFTATE 1% CREAM 15 GM TUBE TP SCH ×2 (12:08→22:09)
[2017-01-24 17:09] LABS: URINE APPEARANCE CLEAR; URINE BILIRUBIN NEGATIVE (NEGATIVE); URINE BLOOD 2+ (NEGATIVE); URINE COLOR LTYELLOW; URINE GLUCOSE (UA) NEGATIVE (NEGATIVE); URINE KETONE NEGATIVE (NEGATIVE); URINE LEUK ESTERASE NEGATIVE (NEGATIVE); URINE NITRITE NEGATIVE (NEGATIVE); URINE PROTEIN NEGATIVE (NEGATIVE); URINE UROBILINOGEN NEGATIVE mg/dL (0.2-1.0)
[2017-01-24 17:39] LABS: URINE MUCUS RARE; URINE RBC 161 /hpf (0-3); URINE WBC 4 /hpf (3-5)
[2017-01-24] MEDS: BACITRACIN 0.9 GM PACKET TP SCH (22:09)
[2017-01-24] MEDS: ZOLPIDEM TARTRATE 5 MG TABLET PO PRN (22:09)
[2017-01-24] MEDS: THIAMINE HCL 100 MG TABLET (FP) PO SCH (22:09)
[2017-01-25] MEDS ORDERED: METHADONE HCL 5 MG TABLET (FOR DETOX USE ONLY) PO ONE (06:00)
[2017-01-25] MEDS: CYCLOBENZAPRINE HCL 10 MG TABLET (FP) PO SCH (07:13)
[2017-01-25 09:24] VITALS: BP 121/81; PULSE 94; TEMP 96.4
--- NOTE | 2017-01-25 09:24 | DS ---
[facility] Detox Discharge Summary Admission Date: 01/20/17 Discharge Date: 01/25/17 - History Present History: Alcohol Dependence, Cocaine Dependence, Opioid Dependence Additional Comments: DETOX COMPLETED. ALERT O X 3. NAD. INSTRUCTED TO FOLLOW UP WITH PCP AT [facility]. Pertinent Past History: ASTHMA HEP C - Physical Exam Results Vital Signs: Vital Signs Temperature 97.4 F L 01/25/17 06:48 Pulse Rate 76 01/25/17 06:48 Respiratory Rate 18 01/25/17 06:48 Blood Pressure 116/85 01/25/17 06:48 O2 Sat by Pulse Oximetry (%) Pertinent Admission Physical Exam Findings: WITHDRAWAL SX Laboratory Tests 01/20/17 01/21/17 01/21/17 16:30 07:45 07:45 WBC 4.7 RBC 4.72 Hgb 13.7 Hct 40.9 MCV 86.6 MCH 28.9 MCHC 33.4 RDW 13.1 Plt Count 190 MPV 8.9 Sodium 138 Potassium 4.3 Chloride 103 Carbon Dioxide 27 Anion Gap 8 BUN 25 H D Creatinine 0.7 Creat Clearance w eGFR > 60 Random Glucose 86 D Calcium 8.3 L Total Bilirubin 0.3 D AST 29 ALT 45 Alkaline Phosphatase 97 Total Protein 5.7 L Albumin 2.7 L Urine Color Yellow Urine Appearance Slcloudy Urine pH 5.0 Ur Specific [place] >= 1.030 H Urine Protein Negative Urine Glucose (UA) Negative Urine Ketones Negative Urine Blood 3+ H Urine Nitrite Negative Urine Bilirubin Negative Urine Urobilinogen Negative Ur Leukocyte Esterase Negative Urine RBC 189 Urine WBC 11 Ur Epithelial Cells Rare Urine Mucus Rare RPR Titer 01/21/17 01/21/17 01/24/17 07:45 16:30 13:50 WBC RBC Hgb Hct MCV MCH MCHC RDW Plt Count MPV Sodium Potassium Chloride Carbon Dioxide Anion Gap BUN Creatinine Creat Clearance w eGFR Random Glucose Calcium Total Bilirubin AST ALT Alkaline Phosphatase Total Protein Albumin Urine Color Straw Ltyellow Urine Appearance Clear Clear Urine pH 6.0 7.0 Ur Specific [place] 1.020 1.020 Urine Protein Negative Negative Urine Glucose (UA) Negative Negative Urine Ketones Negative Negative Urine Blood 2+ H 2+ H Urine Nitrite Negative Negative Urine Bilirubin Negative Negative Urine Urobilinogen Negative Negative Ur Leukocyte Esterase Negative Negative Urine RBC 41 161 Urine WBC 31 4 Ur Epithelial Cells Rare Urine Mucus Rare Rare RPR Titer Nonreactive Microbiology 01/21/17 16:30 Urine - Urine Clean Catch Urine Culture - Final NO GROWTH OBTAINED - Treatment Hospital Course: Detox Protocol Followed, Detoxed Safely, Responded well, Discharged Condition Good, Rehab Referral Accepted Patient has Accepted a Rehab Referral to: [facility] - [facility] Discharge Medications: Ambulatory Orders Albuterol Sulfate Inhaler - [Ventolin HFA Inhaler -] 2 inh IH Q4H PRN #1 inhaler 05/14/16 Methylphenidate HCl [Concerta] 18 mg PO DAILY 12/05/16 Sertraline HCl [Zoloft -] 100 mg PO DAILY 12/05/16 Varenicline Tartrate [Chantix] 1 mg PO BID 12/05/16 Sertraline HCl [Zoloft] 100 mg PO DAILY #30 tablet 01/22/17 - Diagnosis (1) Alcohol dependence with uncomplicated withdrawal Current Visit: Yes Status: Acute (2) Cocaine dependence Current Visit: Yes Status: Acute Qualifiers: Substance use status: uncomplicated Qualified Code(s): F14.20 - Cocaine dependence, uncomplicated (3) Nicotine dependence Current Visit: Yes Status: Acute Qualifiers: Nicotine product type: cigarettes Substance use status: in withdrawal Qualified Code(s): F17.213 - Nicotine dependence, cigarettes, with withdrawal (4) Opioid dependence with withdrawal Current Visit: Yes Status: Acute (5) Asthma Current Visit: Yes Status: Chronic Qualifiers: Asthma severity: mild intermittent Asthma complication type: with status asthmaticus Qualified Code(s): J45.22 - Mild intermittent asthma with status asthmaticus (6) Hepatitis C Current Visit: Yes Status: Chronic Qualifiers: Viral hepatitis chronicity: carrier Qualified Code(s): B18.2 - Chronic viral hepatitis C - AMA Did Patient Leave Against Medical Advice: No
[2017-01-25] MEDS: SERTRALINE HCL 50 MG TABLET (FP) PO SCH (10:27)
[2017-01-25] MEDS: PRENATAL VITAMINS W/ FOLIC ACID TABLET (FP) PO SCH (10:27)
[2017-01-25] MEDS: BACITRACIN 0.9 GM PACKET TP SCH (10:27)
[2017-01-25] MEDS: TOLNAFTATE 1% CREAM 15 GM TUBE TP SCH (10:28)
[2017-01-25] MEDS: NICOTINE 21 MG/24 HOURS TOPICAL PATCH TD SCH (10:29)
--- NOTE | 2017-01-25 11:43 | HP ---
Psychiatrist Admission - Data Vital Signs: Vital Signs - 24 hr 01/24/17 01/24/17 01/24/17 13:10 17:11 22:12 Temperature 95.8 F L 97.0 F L 96.8 F L Pulse Rate 100 H 86 97 H Respiratory 20 19 18 Rate Blood Pressure 130/86 111/65 118/80 01/25/17 01/25/17 01/25/17 00:45 03:30 06:48 Temperature 97.4 F L Pulse Rate 76 Respiratory 18 18 18 Rate Blood Pressure 116/85 01/25/17 09:23 Temperature 96.4 F L Pulse Rate 94 H Respiratory 18 Rate Blood Pressure 121/81 Allergies/Adverse Reactions: Allergies Allergy/AdvReac Type Severity Reaction Status Date / Time ciprofloxacin [From Cipro] Allergy Severe Verified 01/25/17 13:43 ciprofloxacin HCl Allergy Severe Verified 01/25/17 13:43 [From Cipro] diclofenac Allergy Severe Verified 01/25/17 13:43 ibuprofen [From Motrin] Allergy Severe Verified 01/25/17 13:43 NSAIDS (Non-Steroidal Allergy Severe Verified 01/25/17 13:43 Anti-Inflamma mushroom Allergy Verified 01/25/17 13:43 shellfish derived Allergy Verified 01/25/17 13:43 Psychiatric Findings - Problem List ([place] 1, 2,3) (1) Alcohol dependence Status: Acute (2) Opioid dependence Status: Acute (3) Cocaine dependence Status: Acute Qualifiers: Substance use status: uncomplicated Qualified Code(s): F14.20 - Cocaine dependence, uncomplicated (4) Sedative dependence Status: Acute (5) Nicotine dependence Status: Acute Qualifiers: Nicotine product type: cigarettes Substance use status: in withdrawal Qualified Code(s): F17.213 - Nicotine dependence, cigarettes, with withdrawal (6) MDD (major depressive disorder) Status: Chronic Comment: History. (7) ADHD Status: Chronic Comment: By history.Non compliant with medications. (8) Asthma Status: Chronic Qualifiers: Asthma severity: mild intermittent Asthma complication type: with status asthmaticus Qualified Code(s): J45.22 - Mild intermittent asthma with status asthmaticus (9) Hepatitis C Status: Chronic Qualifiers: Viral hepatitis chronicity: carrier Qualified Code(s): B18.2 - Chronic viral hepatitis C (10) History of arthroscopy of both shoulders Status: Chronic (11) Status post arthroscopy of hip Status: Chronic
[2017-01-25] MEDS ORDERED: SUVOREXANT 10 MG TABLET PO PRN (13:00)
[2017-01-26] MEDS ORDERED: SERTRALINE HCL 50 MG TABLET (FP) PO SCH (10:00)
== END 2017-01-25 10:59 | disposition other institution (70) | DRG 897 ==
LOC: YASAS 12:59 → Y3N 14:36
PROVIDERS: ADMIT Internal Medicine; ATTEND Internal Medicine
PROC: HZ2ZZZZ Detoxification Services for Substance Abuse Treatment (ICD-10-PCS; principal; 2017-01-20)
DX: F11.23 Opioid dependence with withdrawal (principal); F14.20 Cocaine dependence, uncomplicated; F33.9 Major depressive disorder, recurrent, unspecified; J45.22 Mild intermittent asthma with status asthmaticus; F10.230 Alcohol dependence with withdrawal, uncomplicated; F17.213 Nicotine dependence, cigarettes, with withdrawal; F19.24 Other psychoactive substance dependence with psychoactive substance-induced mood disorder; F90.9 Attention-deficit hyperactivity disorder, unspecified type; B18.2 Chronic viral hepatitis C; B35.3 Tinea pedis; G47.00 Insomnia, unspecified; R31.29 Other microscopic hematuria; R79.89 Other specified abnormal findings of blood chemistry; Z91.5 Personal history of self-harm
CPT/HCPCS: 36415; 80053; 81003; 81015; 85027; 86593; 87086; 93005; 93010

== ENCOUNTER 2017-01-25 11:01 | Inpatient (IN) | payer OTHER ==
[2017-01-25 11:42] VITALS: BMI 25.8
[2017-01-25] MEDS ORDERED: LOPERAMIDE HCL 2 MG CAPSULE PO PRN (12:21)
[2017-01-25] MEDS ORDERED: diphenhydrAMINE HCL 50 MG CAPSULE PO PRN (12:21)
[2017-01-25] MEDS ORDERED: MENTHOL/PHENOL 1 EACH UD MM PRN (12:21)
[2017-01-25] MEDS ORDERED: P-EPHED 60MG/TRIPROLIDI 2.5MG TABLET PO PRN (12:21)
[2017-01-25] MEDS ORDERED: guaiFENesin/D-METHORPHAN HB 10 ML UNIT-DOSE CUPS PO PRN (12:21)
[2017-01-25] MEDS ORDERED: MAGNESIUM CITRATE 300 ML BOTTLE PO PRN (12:21)
[2017-01-25] MEDS ORDERED: ACETAMINOPHEN 325 MG TABLET (FP) PO PRN (12:21)
[2017-01-25] MEDS ORDERED: NICOTINE POLACRILEX 2 MG GUM BUC PRN (12:21)
[2017-01-25] MEDS ORDERED: MAGNESIUM HYDROX 2400MG/30ML ORAL SUSPENSION 30 ML CUP PO PRN (12:21)
[2017-01-25] MEDS ORDERED: MAG HYDROX/AL HYDROX/SIMETH 30 ML UNIT-DOSE CUP PO PRN (12:21)
[2017-01-25] MEDS ORDERED: ALBUTEROL SO4 6.7 GM HFA INHALER IH PRN (12:23)
--- NOTE | 2017-01-25 12:24 | HP ---
[facility] Re[facility] Assess/Revision - Admission History Admitted to Rehab from: [facility] Date of Admission to Rehab: 01/25/17 - Vital signs Vital Signs: Vital Signs Period Temp Pulse Resp BP Sys/Wheeler Pulse Ox Last 24 Hr 98.6 F 86 20 120/70 - Findings Detox History & Physical reviewed: Yes Concur with findings: Yes
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
[2017-01-25] MEDS ORDERED: THIAMINE HCL 100 MG TABLET (FP) PO SCH (22:00)
[2017-01-25] MEDS ORDERED: SUVOREXANT 10 MG TABLET PO PRN (22:00)
[2017-01-26 06:21] VITALS: BP 110/69; PULSE 61; TEMP 97.5
[2017-01-26] MEDS ORDERED: NICOTINE 21 MG/24 HOURS TOPICAL PATCH TD SCH (10:00)
[2017-01-26] MEDS ORDERED: PRENATAL VITAMINS W/ FOLIC ACID TABLET (FP) PO SCH (10:00)
[2017-01-26] MEDS ORDERED: SERTRALINE HCL 50 MG TABLET (FP) PO SCH (10:00)
[2017-01-26 11:53] LABS: HIV 1 & 2 AB NEGATIVE; HIV 1 AGp24 NEGATIVE
--- NOTE | 2017-01-26 18:35 | PN ---
[facility] Progress Note Note: Psychiatry Attending telecommunications cable jointer note : Called by nurse in charge. Issue : Mr Mika ORTEGA is showing impatience. Wants to leave treatment immediately.No reason given. Mr Mika ORTEGA is asked to wait for psychiatrist for evaluation. Patient reportedly refused and left.
== END 2017-01-26 16:32 | disposition left against medical advice (07) | DRG 894 ==
LOC: YASAS 11:01 → Y3W 11:02
PROVIDERS: ADMIT Psychiatry & Neurology Psychiatry; ATTEND Psychiatry & Neurology Psychiatry
PROC: HZ42ZZZ Group Counseling for Substance Abuse Treatment, Cognitive-Behavioral (ICD-10-PCS; principal; 2017-01-25)
DX: F11.20 Opioid dependence, uncomplicated (principal); F13.20 Sedative, hypnotic or anxiolytic dependence, uncomplicated; F14.20 Cocaine dependence, uncomplicated; F33.9 Major depressive disorder, recurrent, unspecified; J45.22 Mild intermittent asthma with status asthmaticus; F10.20 Alcohol dependence, uncomplicated; F17.210 Nicotine dependence, cigarettes, uncomplicated; F90.9 Attention-deficit hyperactivity disorder, unspecified type; B18.2 Chronic viral hepatitis C
CPT/HCPCS: 36415; 87389